=== PATIENT | female | born 1995 | race African-American/Black ===

== ENCOUNTER 2023-03-30 21:54 | Emergency (ER) | payer OTHER ==
[~2023-03-30] VITALS: Ht 165.1 cm; Wt 65.8 kg
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
--- NOTE | 2023-03-30 22:39 | NUR ---
EMT AT PT'S BEDSIDE TO CLEAN R HAND LAND
--- NOTE | 2023-03-30 23:27 | NUR ---
SALESPERSON WOMEN'S DRESSES AT PT'S BEDSIDE
[2023-03-30] MEDS ORDERED: TDAP [DIPH/PERTUSSIS/TET] 0.5 ML VIAL IM ONE ×2 (23:29→23:30)
[2023-03-30] MEDS ORDERED: LIDOCAINE 1%-EPI 1:100,000 20 ML VIAL TP ONE (23:30)
--- NOTE | 2023-03-30 23:37 | NUR ---
Gabino woodruff in [facility] - 03/31/23 at 0025 by DAVID URINE COLLECTED, SENT TO LAB
--- NOTE | 2023-03-30 23:37 | NUR ---
URINE CUP OFFERED, PT UNABLE TO PROVIDE URINE AT THIS TIME
[2023-03-30 23:38] LABS: BASOPHILS % (AUTO) 0.4 % (0.0-2.0); EOSINOPHILS % (AUTO) 1.4 % (0.0-6.0); HEMATOCRIT 39 % (33-45); HEMOGLOBIN 13.1 g/dL (11.5-14.8); LYMPHOCYTES # (AUTO) 1.6 K/uL (0.8-4.8); LYMPHOCYTES % (AUTO) 22.2 % (20.0-44.0); MEAN CORPUSCULAR HGB CONC 33 g/dl (31.0-36.0); MEAN CORPUSCULAR VOLUME 93 fL (82-100); MONOCYTES # (AUTO) 1.1 K/uL (0.1-1.30); MONOCYTES % (AUTO) 14.6 % (2.0-12.0); NEUTROPHILS # (AUTO) 4.4 K/uL (1.8-8.9); NEUTROPHILS % (AUTO) 61.4 % (43.0-81.0); PLATELET COUNT (AUTO) 227 K/uL (150-450); RED BLOOD CELL COUNT(AUTO) 4.24 MIL/uL (4.0-5.2); WHITE BLOOD COUNT (AUTO) 7.2 K/uL (4.3-11.0)
[2023-03-30 23:53] LABS: ALANINE AMINOTRANSFERASE 14 U/L (12-78); ALBUMIN 3.5 g/dL (3.4-5.0); ALCOHOL, BLOOD < 3 mg/dL (0-10); ALKALINE PHOSPHATASE 87 U/L (46-116); ASPARTATE AMINOTRANSFERASE 11 U/L (15-37); BILIRUBIN,DIRECT 0.1 mg/dL (0.0-0.2); BILIRUBIN,TOTAL 0.5 mg/dL (0.2-1.0); CALCIUM, SERUM 9.1 mg/dL (8.5-10.1); CARBON DIOXIDE 25 mmol/L (21-32); CHLORIDE 106 mmol/L (98-107); CREATININE 0.7 mg/dL (0.6-1.3); GLUCOSE 109 mg/dL (74-106); POTASSIUM 3.7 mmol/L (3.5-5.1); SODIUM SERUM 140 mmol/L (136-145); TOTAL PROTEIN, SERUM 7.1 g/dL (6.4-8.2); UREA NITROGEN, BLOOD 14 mg/dL (7-18)
--- NOTE | 2023-03-31 01:36 | NUR ---
DR SILVIA GARCIA AT PT'S BEDSIDE FOR SUTURES TO R HAND/ WRIST
--- NOTE | 2023-03-31 02:16 | NUR ---
RECEIVED CALL FROM MIGUEL/BRACELET FORM COVERER [phone] WHO STATES PATIENT'S ACTUAL NAME IS MICHAEL RODRIGUEZ AND SHE CAME FROM "[facility]" [address] [place] [address]. SHE STATES PATIENT IS A DANGER TO OTHERS AND RECOMMENDS PSYCH EVAL. SHE CALLED THE PATIENT'S MENTAL HEALTH ADVOCATE, ELVIS BATRES [phone], WHO ALSO RECOMMENDS PSYCH EVAL. NEW INFORMATION RELAYED TO DR. SILVIA MD.
[2023-03-31] MEDS ORDERED: GELATIN SPONGE,ABSORBABLE 1 SPONGE SPONGE TP ONE (03:22)
--- NOTE | 2023-03-31 04:10 | NUR ---
URINE COLLECTED, SENT TO LAB
[2023-03-31 04:40] LABS: BILIRUBIN,URINE NEGATIVE (NEGATIVE); COLOR,URINE YELLOW (YELLOW); LEUKOCYTE ESTERASE ,URINE 1+ (NEGATIVE); NITRITE, URINE POSITIVE (NEGATIVE); PROTEIN,URINE NEGATIVE (NEGATIVE); UGLUCOSE NEGATIVE (NEGATIVE); UROBILINOGEN,URINE 0.2 EU/dL (0.2)
[2023-03-31 05:19] LABS: BACTERIA,URINE Moderate /HPF (None Seen); RBC,URINE 0-2 /HPF (0-2); SQUAMOUS EPITHELIAL CELL,UR Rare /HPF (None Seen)
[2023-03-31] MEDS ORDERED: NITR100C6 PO (05:24)
[2023-03-31] MEDS ORDERED: NITROFURANTOIN/MONOHYDRATE MACROCRYSTALS 100 MG CAPSULE PO ONE (05:30)
[2023-03-31] MEDS ORDERED: NITROFURANTOIN/MONOHYDRATE MACROCRYSTALS 100 MG CAPSULE ONE (05:37)
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
--- NOTE | 2023-03-31 14:08 | NUR ---
TAP CARD GIVEN TO PATIENT
--- NOTE | 2023-03-31 14:59 | NUR ---
AIDEN IBARRA [id number] [phone]
[2023-03-31 16:07] VITALS: BP 112/81; TEMP 98.6; O2SAT 97
--- NOTE | 2023-03-31 16:07 | NUR ---
Patient given written and verbal discharge instructions. Patient verbalizes understanding of instructions. Patient is ambulatory with steady gait. Refuses offer of group home placement. Patient given list of available shelters in surrounding area.
== END 2023-03-31 16:07 | disposition home or self-care (01) ==
LOC: ER 21:59 → EDBD 21:59 → ER 03-31 16:07
DX: S61.511A Laceration without foreign body of right wrist, initial encounter (principal); S61.411A Laceration without foreign body of right hand, initial encounter; R45.1 Restlessness and agitation; N39.0 Urinary tract infection, site not specified; F15.10 Other stimulant abuse, uncomplicated; Z20.822 Contact with and (suspected) exposure to COVID-19; W25.XXXA Contact with sharp glass, initial encounter; Y93.89 Activity, other specified; Y92.89 Other specified places as the place of occurrence of the external cause; Y99.8 Other external cause status
CPT/HCPCS: 12044; 36415; 80048; 80076; 80143; 80307; 80320; 81001; 84703; 85025; 87086; 87426; 90471; 90715; 99285; A6403; C9803; G0480